=== PATIENT | male | born 2000 | race Caucasian/White ===

== ENCOUNTER 2021-03-10 13:00 | Emergency (ER) | payer OTHER ==
[~2021-03-10] VITALS: Ht 157.5 cm; Wt 63.6 kg
[2021-03-10 14:15] VITALS: BP 144/62
--- NOTE | 2021-03-10 18:17 | ECGEPIP ---
[facility] - ED Test Date: 2021-03-10 Pat Name: KEENA CHOI Department: Room: - Gender: Male Registered Nurse Surgical Services: YOSELYN : 2000 Requested By: Mathew Alonzo Order Number: [id number] Reading MD: Winter Salas Measurements Intervals [place] Rate: 70 P: 51 [place]: 152 QRS: 73 QRSD: 86 T: 21 QT: 358 QTc: 386 Interpretive Statements Normal sinus rhythm with sinus arrhythmia No prior Electronically Signed on 03-10-2021 18:17:27 EDT by Winter Salas
== END 2021-03-10 14:25 | disposition home or self-care (01) ==
LOC: M ED 13:00
DX: R06.4 Hyperventilation (principal)

== ENCOUNTER 2022-01-31 17:09 | Emergency (ER) | payer OTHER ==
[~2022-01-31] VITALS: Ht 157.5 cm; Wt 63.6 kg
[2022-01-31] MEDS ORDERED: IBUP-1114 PO (17:20)
[2022-01-31 20:45] VITALS: BP 125/56
== END 2022-01-31 20:47 | disposition home or self-care (01) ==
LOC: M ED 17:09
DX: B34.9 Viral infection, unspecified (principal); Z86.16 Personal history of COVID-19